=== PATIENT | male | born 1955 | race Caucasian/White ===

== ENCOUNTER 2024-11-02 18:31 | Emergency (ER) | payer OTHER, SELFPAY ==
[2024-11-02 18:35] VITALS: BP 143/79
--- NOTE | 2024-11-02 19:18 | ED.GENMED ---
History of Present Illness
General
Chief Complaint: Abnormal Lab Value
Source: patient
Exam Limitations: none
Time Seen by Provider: 11/02/24 19:06
Nursing documentation reviewed up to this point in time: agreed with
History of Present Illness
History of Present Illness:
69-year-old male with past medical history as noted presents to the ER for evaluation of hyperkalemia. Patient reports that he is going through preoperative clearance prior to cataract surgery. He had outpatient labs drawn earlier today and
received a call stating that his potassium was high. He says he has had high potassiums in the past but never to this degree; he was told labs showed potassium of 6.2. Referred to the ER for assessment. He has no acute symptoms says that he feels
in his normal state of health.
Review of Systems
Review of Systems
All Other Systems: ROS reviewed and negative except as documented in HPI and ROS
Respiratory: Denies trouble breathing
Cardiac: Denies chest pain or palpitations
Neurological: Denies dizzy or headache
Phy Exam
Physical Exam
Physical Exam:
General: Well appearing and non-toxic
HEENT: protecting airway
Neck: appears supple
CV: No evidence of cyanosis
Resp: No accessory muscle use
Abd: Non-distended
Extremities: No deformities
Neuro: Alert
Psych: Normal affect
Skin: Intact
Scores
Heart Failure Risk
Heart Failure Risk Score: Not Applicable
Heart Score for Chest Pain Patients
STEMI patient?: Not applicable
Withdrawal Assessment of Alcohol
Withdrawal Assessment Completed?: Not applicable
Course
Orders/Labs/Results
Orders:
Orders
11/02/24 18:33
Electrocardiogram (*1) Urgent
Reason for Study: Chest Pain
EKG- Treatment ONCE
11/02/24 19:08
Complete Blood Count/With Diff Urgent
Comprehensive Metabolic Panel Urgent
Troponin I Urgent
Abnormal Lab Results
11/02/24
19:08
Eosinophils % 6.1 H %
(0-6)
BUN 31 H mg/dl
(9-20)
Glucose 224 H mg/dl
(70-99)
11/02/24 19:08
11/02/24 19:08
Vital Signs
Initial and Last Documented VS:
Initial Vital Signs
Temp Pulse Resp BP Pulse Ox
36.6 C 66 18 143/79 96
11/02/24 18:35 11/02/24 18:35 11/02/24 18:35 11/02/24 18:35 11/02/24 18:35
Last Documented Vital Signs
Temp Pulse Resp BP Pulse Ox
36.6 C 66 18 143/79 96
11/02/24 18:35 11/02/24 18:35 11/02/24 18:35 11/02/24 18:35 11/02/24 19:23
MDM/Problems Addressed
Differential Diagnosis Includes:
Hyperkalemia, hemolysis/lab error
MDM/Problems Addressed:
69-year-old male presents for evaluation of hyperkalemia noted on outpatient labs during preoperative screening process prior to cataract surgery; labs drawn earlier showed potassium of 6.2. He is asymptomatic. Vitals and exam as above. Will
repeat labs to confirm value and reassess.
Potassium normal today at 4.8. Suspect a mild/lab error on earlier labs. Stable for discharge. We did discuss his high blood sugar�he is a nondiabetic, following up with his primary doctor.
*Pulse Oximetry
SaO2: 96
Oxygen Mode of Delivery: Room air
Patient hypoxic: no (96%)
*EKG
Interpreted by ED Provider?: Yes
Heart Rate: 79
Rate: normal
Rhythm: sinus and PVC's
[place]: normal axis
Interval: normal interval
QRS Pattern: normal QRS
Ischemia: other (Nonspecific T wave abnormalities)
*Critical Care Note
Total Time (30-74mins, 75-104mins- exclusive of procedures): Not Applicable
Data Reviewed
Source: patient and spouse
ED Attending Note
-
Portions of this chart may have been created with voice recognition software.� Occasional wrong word or��sound alike� substitutions may have occurred due to the inherent limitations of voice recognition software.
Discharge Plan
Departure
Patient Disposition: Home (Routine Discharge)
Date of Disposition: 11/02/24
Time of Disposition: 19:53
Patient with high blood pressure during this ER visit?: Yes
Discharge Problem:
Encounter for medical screening examination
Instructions: Hyperkalemia (DC)
Activity Restrictions/Additional Instructions:
Thank you for visiting the Emergency Department at [facility].
1. Please schedule a follow up appointment as directed. Call first thing tomorrow morning to make an appointment.
2. If indicated, please take your medications as instructed and indicated on discharge paperwork.
3. If any of your symptoms do not improve, or persist, or become more severe within 6-12 hours, please return to the emergency department for further care.
4. Please return to the emergency department if you develop a headache, neck pain/stiffness, fever greater than 100.4F, chest pain, shortness of breath, persistent nausea, vomiting, slurred speech, difficulty walking, numbness/tingling, weakness,
signs of infection or any other symptoms that are worrisome to you.
Please call [phone] if you have any questions.
Interventions
Interventions:
*Risk Screen - Suicide Last Done: 11/02/24 18:35
Discharge Date and Time
Print Language: GUINEAN
[2024-11-02 19:21] LABS: Hematocrit 42.3 % (39.0-52.0); Hemoglobin 14.1 g/dL (13.0-18.0); Mean Corp Hgb Conc. 33.3 g/dL (33.0-37.0); Mean Corpuscular Volume 88.3 fL (80.0-94.0); Nucleated Red Blood Cells % 0 % (-); Platelet Count 259 10^3/uL (130-400); Red Cell Dist. Width 12.9 % (11.5-14.5)
[2024-11-02 19:45] LABS: ALT (SGPT) 23 U/L (0-50); AST (SGOT) 24 U/L (17-59); Albumin 3.9 g/dl (3.5-5.0); Alkaline Phosphatase 65 U/L (38-126); Blood Urea Nitrogen 31 mg/dl (9-20); Calcium 8.9 mg/dl (8.4-10.2); Carbon Dioxide 28 mmol/L (22-30); Chloride 104 mmol/L (98-107); Glucose 224 mg/dl (70-99); Potassium 4.8 mmol/L (3.5-5.1); Sodium 136 mmol/L (135-145); Total Protein 6.6 g/dl (6.3-8.2); eGFR > 60.00
[2024-11-02 19:54] LABS: Troponin I < 0.012 ng/ml
== END 2024-11-02 20:07 | disposition home or self-care (01) ==
LOC: EMR 18:31
PROVIDERS: Student in an Organized Health Care Education/Training Program; EMERGENCY PHYSICIAN Emergency Medicine; FAMILY PHYSICIAN Internal Medicine
DX: Z00.00 Encounter for general adult medical examination without abnormal findings (principal); I49.3 Ventricular premature depolarization; Z98.49 Cataract extraction status, unspecified eye
CPT/HCPCS: 99284; 80053; 84484; 85025; 93005